=== PATIENT | male | born 1990 | race Hispanic/Latino ===

== ENCOUNTER 2025-01-03 11:32 | Emergency (ER) | payer OTHER ==
[~2025-01-03] VITALS: Ht 175.3 cm; Wt 78.0 kg
[2025-01-03] VITALS (9 sets, daily range): BP systolic 108–116; BP diastolic 71–83
== END 2025-01-03 13:43 | disposition home or self-care (01) | DRG 605 ==
LOC: ED 11:32
DX: S00.03XA Contusion of scalp, initial encounter (principal); W17.89XA Other fall from one level to another, initial encounter; Y92.89 Other specified places as the place of occurrence of the external cause; Y99.0 Civilian activity done for income or pay